=== PATIENT | female | born 1980 | race Caucasian/White ===

== ENCOUNTER 2022-03-22 11:01 | Outpatient (CLI) | payer OTHER, SELFPAY ==
[2022-03-23 00:02] LABS: Vitamin B12* > 1000 pg/mL (243-894)
== END 2022-03-22 11:02 | disposition home or self-care (01) ==
LOC: FRMREF 11:01
PROVIDERS: PCP Physician Assistant Medical; Visit Provider Physician Assistant Medical
DX: I10 Essential (primary) hypertension (principal); D50.9 Iron deficiency anemia, unspecified; E53.8 Deficiency of other specified B group vitamins; F32.A Depression, unspecified
CPT/HCPCS: 82607

== ENCOUNTER 2022-04-12 20:36 | Outpatient (CLI) | payer OTHER, SELFPAY ==
--- NOTE | 2022-04-25 12:36 | W.PM.SLEEP ---
Sleep Study Details Details Interpreting Provider: Dominik Krishnamurthy MD Date of Sleep Study: 04/12/22 Sleep Study Details: STUDY TYPE:? Hospital polysomnogram ? BMI:? 35.5 ORDERING PROVIDER:? Jimmie INDICATION:? Concerns about sleep apnea ? SLEEP SUMMARY:? Sleep time 366.5, efficiency 82.8, latency 16 minutes, REM latency 252 minutes. Arousal index all 22.3 RESPIRATORY SUMMARY:? Mean oxygen awake 95 asleep 94 minimum 88. AHI 9.3 RDI 19 REM AHI 10, supine REM AHI 17.1. There is minimal positional variation between supine and nonsupine sleep PERIODIC LIMB MOVEMENTS OF SLEEP:? None CARDIAC:? Awake 89 asleep 82. No arrhythmias noted IMPRESSION:? [id number] obstructive sleep apnea with an AHI of 9.3 and an RDI of 19. There was minimal positional variation. There was some supine REM dependency. RECOMMENDATION: Treatment options include AutoSet CPAP at a pressure of 4-17, dental appliance weight loss and/or airway expansion surgery. Close follow-up is recommended as there were some central apneas noted.
== END 2022-04-12 20:37 | disposition home or self-care (01) ==
PROVIDERS: PCP Physician Assistant Medical; Visit Provider Physician Assistant Medical
DX: G47.33 Obstructive sleep apnea (adult) (pediatric) (principal)
CPT/HCPCS: 95810

== ENCOUNTER 2022-08-23 07:21 | Outpatient (CLI) | payer OTHER, SELFPAY ==
[2022-08-23 14:46] LABS: Chloride* 104 mmol/L (96-114); Sodium* 142 mmol/L (135-149)
[2022-08-23 14:47] LABS: Albumin* 4.2 g/dL (3.3-5.0)
[2022-08-23 14:48] LABS: Potassium* 3.7 mmol/L (3.6-5.1)
[2022-08-23 14:50] LABS: Alanine Aminotransferase* 21 U/L (4-35); Alkaline Phosphatase* 103 U/L (40-150); Aspartate Amino Transferase* 22 U/L (12-35); Bilirubin Total* 0.5 mg/dL (0.1-1.5); Blood Urea Nitrogen* 11 mg/dL (5-24); Carbon Dioxide* 30 mmol/L (20-32); Cholesterol* 169 mg/dL (90-199); Creatinine* 0.7 mg/dL (0.5-1.5); Estimated Glomerular Filt Rate 111 ml/min; Glucose* 103 mg/dL (60-115); Total Protein* 6.9 g/dL (6.0-8.3); Triglycerides* 129 mg/dL (40-149)
[2022-08-23 14:51] LABS: Calcium* 9.2 mg/dL (8.4-10.6); HDL Cholesterol* 42 mg/dL (>=50); LDL Cholesterol Calculated 101 mg/dL (<100)
[2022-08-23 15:42] LABS: Vitamin B12* 329 pg/mL (243-894)
== END 2022-08-23 07:22 | disposition home or self-care (01) ==
PROVIDERS: PCP Physician Assistant Medical; Visit Provider Physician Assistant Medical
DX: D50.9 Iron deficiency anemia, unspecified (principal); I10 Essential (primary) hypertension; E53.8 Deficiency of other specified B group vitamins; F32.4 Major depressive disorder, single episode, in partial remission; F90.0 Attention-deficit hyperactivity disorder, predominantly inattentive type
CPT/HCPCS: 80053; 80061; 82607; 84443

== ENCOUNTER 2022-10-20 08:34 | Outpatient (CLI) | payer OTHER, SELFPAY ==
--- NOTE | 2022-10-20 08:45 | CRLHL7_ITS ---
For Patients: As a result of the Century Cures Act, medical imaging exams and procedure reports are released immediately into your electronic medical record. You may view this report before your referring provider. If you have questions, please contact your health care provider. BILATERAL SCREENING MAMMOGRAM WITH COMPUTER-AIDED DETECTION AND TOMOSYNTHESIS TECHNIQUE: CC and MLO views were obtained. These mammographic images have been obtained using full-field digital technique. These mammographic images were interpreted with the benefit of computer-aided detection. Breast Tomosynthesis was used in this interpretation. COMPARISON FILM: 08/02/21 FINDINGS: There are scattered areas of fibroglandular density. IMPRESSION: There is no radiographic evidence for malignancy. ASSESSMENT: BI-RADS Category 1: Negative RECOMMENDATION: Routine screening mammogram in 1 year. A lay language report of this examination will be provided to the patient. Wilton Zuleta M.D. Diagnostic Radiologist [email or web address] KELI/chyna Transcribed: 12:28 p.m. PT/Dictated by: Wilton Zuleta MD @ 10/20/2022 9:17:00 AM (Electronically Signed)
== END 2022-10-20 08:35 | disposition home or self-care (01) ==
PROVIDERS: PCP Physician Assistant Medical; Visit Provider Physician Assistant Medical
DX: Z12.31 Encounter for screening mammogram for malignant neoplasm of breast (principal)
CPT/HCPCS: 77063; 77067

== ENCOUNTER 2022-10-23 15:15 | Outpatient (CLI) | payer OTHER, SELFPAY ==
[2022-10-23 19:17] LABS: Chlamydia DNA Amplified* NOT DETECTED (No Detected); GC DNA Amplified* NOT DETECTED (No Detected)
== END 2022-10-23 15:16 | disposition home or self-care (01) ==
LOC: NFLDREF 15:15
PROVIDERS: PCP Physician Assistant Medical; Visit Provider Physician Assistant
DX: Z01.419 Encounter for gynecological examination (general) (routine) without abnormal findings (principal); N89.8 Other specified noninflammatory disorders of vagina; Z11.3 Encounter for screening for infections with a predominantly sexual mode of transmission
CPT/HCPCS: 87491; 87591

== ENCOUNTER 2023-07-18 08:10 | Outpatient (CLI) | payer OTHER, SELFPAY | END 2023-07-18 08:11 | disposition home or self-care (01) | PROVIDERS: PCP Physician Assistant Medical; Visit Provider Physician Assistant Medical | DX: I10 Essential (primary) hypertension (principal); D50.9 Iron deficiency anemia, unspecified; E53.8 Deficiency of other specified B group vitamins; F98.8 Other specified behavioral and emotional disorders with onset usually occurring in childhood and adolescence; K21.9 Gastro-esophageal reflux disease without esophagitis | CPT/HCPCS: 80053; 80061; 84443 ==

== ENCOUNTER 2023-09-14 07:15 | Outpatient (CLI) | payer OTHER, SELFPAY ==
--- NOTE | 2023-09-14 07:15 | MR_ITS ---
?next patient [email or web address]?[email or web address] 3d# ?previous exam [email or web address]?[email or web address] 3d# ?next exam [email or web address]/ViewExam?id=[email or web address]% 3d# ?images?unavailable?print?order exam Additional images may become available within 24 hours of the exam.?Patient Summary Record?help [email or web address]/ViewExam?id=[email or web address]% 3d# ?close [email or web address]?id=[email or web address]% 3d# [address] [address] Phone:?[phone] Fax:?[phone] Referring Physician Information: Peri Mendes M.D. [address] [facility] [address] Phone:?[phone] Fax:?[phone] Patient:?Yaquelin Cabral.O.B:?1980 Sex:?Female Phone:?[phone] [facility] MRN:?[id number] Exam Date:?09/14/2023 EXAM: MRI EXAMINATION OF THE RIGHT HIP CLINICAL INFORMATION: Right hip pain ongoing for 2 months. Small lump. No specific injury. Possible lipoma, seroma, calcium deposit. TECHNICAL INFORMATION: Large [id number]-[id number] coronal T1 and STIR images were obtained. Thin section coronal and sagittal proton density and T2-weighted spin echo sequences were obtained through the right hip followed by oblique axial proton density and axial fat saturation proton density images. There are no prior studies available for comparison. INTERPRETATION: Hip joint: There is no evidence of hip joint effusion or loose body. No subchondral edema signal or cystic change. No discrete lesion identified to indicate AVN. No evidence of marrow edema pattern to indicate fracture or stress reaction of the femoral neck. 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 Thinning of the articular cartilage continues involving the periphery of the anterosuperior joint. There is tearing involving the chondral labral junction of the superior aspect of the labrum. No definite evidence for an anterosuperior labral tear. No paralabral cyst. No appreciable decreased offset involving the femoral head/neck junction. No evidence for acetabular retroversion. The gluteus tendon insertions onto the greater trochanter are intact without tear or significant tendinopathy. No evidence of fluid signal abnormality to indicate trochanteric bursitis. Intact appearance of the iliopsoas muscle and tendon insertions. No evidence for iliopsoas bursitis. No evidence for a soft tissue cyst, mass or fluid collection about the hip. Bones and joints: Marked L5-S1 degenerative disc disease. No occult fracture/stress reaction involves the sacrum. No appreciable changes of SI joint arthrosis. No evidence for a fracture. No abnormal marrow edema pattern to indicate occult stress reaction or stress fracture. Musculotendinous structures: Series 2 images 18 through 20 density mild to moderate changes of edema signal associated with the gluteus origins at the right iliac crest. Mild overlying soft tissue edema signal as well. No other muscle belly edema pattern. Intrapelvic contents: No free fluid seen within the pelvis. There is an ovoid 9 mm low signal intensity mass lesion in keeping with uterine fibroid. No other intrapelvic mass. Neurovascular structures: No discrete cyst, mass or other compression upon the portions visualized of sciatic or femoral nerves. CONCLUSION: 1. There is a small 5 mm segment of chondromalacia and apparent superimposed full-thickness loss involving the periphery of the acetabular roof. Additional thinning of the articular cartilage involving the periphery of the anterosuperior joint. 2. Tear appears present involving the chondral labral junction of the superior labrum. 3. No evidence for bursitis about the hip. 4. No evidence for soft tissue cyst, mass or fluid collection about the hip. 5. There is a mild to moderate appearance of edema signal within the right-sided gluteus origins at the iliac crest in keeping with grade 1 injury. There are mild overlying soft tissue inflammatory changes as well. 6. Marked L5-S1 degenerative disc disease. KES Electronically signed on 09/14/2023 12:10:00 PM by Jerry Esquivel M.D.
== END 2023-09-14 07:16 | disposition home or self-care (01) ==
LOC: MRI 07:16
PROVIDERS: PCP Physician Assistant Medical; Visit Provider Family Medicine
DX: M25.551 Pain in right hip (principal); M94.251 Chondromalacia, right hip; S73.101A Unspecified sprain of right hip, initial encounter; M51.37 Other intervertebral disc degeneration, lumbosacral region; Q65.89 Other specified congenital deformities of hip
CPT/HCPCS: 73721

== ENCOUNTER 2023-12-21 09:32 | Outpatient (CLI) | payer OTHER, SELFPAY ==
[2023-12-21 14:01] LABS: Chlamydia DNA Amplified* NOT DETECTED (No Detected); GC DNA Amplified* NOT DETECTED (No Detected)
== END 2023-12-21 09:33 | disposition home or self-care (01) ==
PROVIDERS: PCP Physician Assistant Medical; Visit Provider Physician Assistant
DX: Z11.3 Encounter for screening for infections with a predominantly sexual mode of transmission (principal)
CPT/HCPCS: 86592; 86703; 86803; 87340; 87491; 87591

== ENCOUNTER 2023-12-24 07:33 | Outpatient (CLI) | payer OTHER, SELFPAY ==
--- NOTE | 2023-12-24 07:45 | MM_ITS ---
Patient: WILNER KEATING Facility:?[facility] Patient ID:?[id number] Site Patient ID:?[id number]. Site :?1980 Study:?XRay-Breast Bilateral 3D W/CAD-12/24/2023 8:03:10 AM Ordering Physician:Delgado December Final Report: BILATERAL SCREENING MAMMOGRAM WITH COMPUTER-AIDED DETECTION AND TOMOSYNTHESIS TECHNIQUE: CC and MLO views were obtained. These mammographic images have been obtained using full-field digital technique. These mammographic images were interpreted with the benefit of computer-aided detection. Breast tomosynthesis was used in this interpretation. COMPARISON FILM: 10/20/22, 08/02/21. FINDINGS: There are scattered areas of fibroglandular density. IMPRESSION: There is no radiographic evidence for malignancy. ASSESSMENT: BI-RADS Category 1: Negative RECOMMENDATION: Routine screening mammogram in 1 year. A lay language report of this examination will be provided to the patient. RUT DALLAS M.D. Diagnostic Radiologist [email or web address] KELI/daniele D& Transcribed: 3:[address]/Dictated by: Rut Dallas MD @ 12/25/2023 12:26:00 PM Signed by:?Rut Dallas MD @12/25/2023 9:34:29 PM (Electronic Signature)
== END 2023-12-24 07:34 | disposition home or self-care (01) ==
LOC: MAMMO 07:34
PROVIDERS: PCP Physician Assistant Medical; Visit Provider Physician Assistant
DX: Z12.31 Encounter for screening mammogram for malignant neoplasm of breast (principal)
CPT/HCPCS: 77063; 77067

== ENCOUNTER 2024-10-28 08:08 | Outpatient (CLI) | payer OTHER, SELFPAY | END 2024-10-28 08:09 | disposition home or self-care (01) | LOC: NFLDREF 10-29 08:38 | PROVIDERS: PCP Physician Assistant Medical; Referring Provider Physician Assistant Medical; Visit Provider Physician Assistant Medical | DX: I10 Essential (primary) hypertension (principal); E53.8 Deficiency of other specified B group vitamins; R73.03 Prediabetes; R53.82 Chronic fatigue, unspecified; F32.4 Major depressive disorder, single episode, in partial remission; K21.9 Gastro-esophageal reflux disease without esophagitis | CPT/HCPCS: 80053; 80061; 82306; 82607; 84443 ==

== ENCOUNTER 2024-12-30 14:26 | Outpatient (CLI) | payer OTHER, SELFPAY | END 2024-12-30 14:27 | disposition home or self-care (01) | LOC: NFLDREF 01-03 02:50 | PROVIDERS: PCP Physician Assistant Medical; Referring Provider Physician Assistant Medical; Visit Provider Physician Assistant Medical | DX: N30.00 Acute cystitis without hematuria (principal) | CPT/HCPCS: 87086 ==

== ENCOUNTER 2025-01-08 14:58 | Outpatient (CLI) | payer OTHER, SELFPAY | END 2025-01-08 14:59 | disposition home or self-care (01) | LOC: NFLDREF 01-18 18:10 | PROVIDERS: PCP Physician Assistant Medical; Referring Provider Physician Assistant Medical; Visit Provider Physician Assistant | DX: R10.2 Pelvic and perineal pain (principal) | CPT/HCPCS: 87086 ==

== ENCOUNTER 2025-01-09 16:05 | Outpatient (CLI) | payer OTHER, SELFPAY ==
--- NOTE | 2025-01-09 16:00 | CRLHL7_ITS ---
For Patients: As a result of the Century Cures Act, medical imaging exams and procedure reports are released immediately into your electronic medical record. You may view this report before your referring provider. If you have questions, please contact your health care provider. INDICATION: Abnormal uterine bleeding COMPARISON: 04/01/2021 TECHNIQUE: 2D lentz scale and color Doppler images were acquired of the pelvis using a transabdominal and transvaginal approach. FINDINGS: Sonographic images demonstrate a normal size and smooth outer contour of the uterus. Uterus measures 7.8 cm in length by 3.7 cm in AP diameter by 5.3 cm in transverse dimension. Posterior right-sided intramural fibroid measures 4 x 4 x 4 millimeters. The endometrium measures 3.6 millimeters. Echogenic foci associated with the endometrium measures 4 x 2 x 2 millimeters and 3 x 3 x 5 millimeters. No endometrial fluid. The right ovary measures 4.0 x 2.5 x 2.6 cm in size and the left ovary measures 3.0 x 1.8 x 1.8 cm. The ovaries demonstrate normal arterial and venous blood flow on color Doppler analysis. There are no suspicious fluid collections within the cul-de-sac. Collapsing right ovarian cyst measured 2.0 x 1.8 x 2.1 cm. IMPRESSION: Endometrial thickness 3.6 millimeters. No endometrial fluid. Incidental calcifications associated with the endometrial stripe measuring 4 millimeters and 5 millimeters. Benign collapsing right ovarian cyst measures 2.1 cm. Incidental intramural fibroid measures 4 millimeters. Dictated by Wilton Zuleta MD @ 01/12/2025 9:37:38 AM (Electronically Signed)
== END 2025-01-09 16:06 | disposition home or self-care (01) ==
LOC: US 16:05
PROVIDERS: PCP Physician Assistant Medical; Visit Provider Physician Assistant
DX: N93.9 Abnormal uterine and vaginal bleeding, unspecified (principal); R93.89 Abnormal findings on diagnostic imaging of other specified body structures; D25.1 Intramural leiomyoma of uterus; R10.2 Pelvic and perineal pain
CPT/HCPCS: 76830; 76856

== ENCOUNTER 2025-04-20 14:22 | Outpatient (CLI) | payer BC, SELFPAY ==
--- NOTE | 2025-04-20 14:40 | CRLHL7_ITS ---
For Patients: As a result of the Century Cures Act, medical imaging exams and procedure reports are released immediately into your electronic medical record. You may view this report before your referring provider. If you have questions, please contact your health care provider. BILATERAL DIGITAL SCREENING MAMMOGRAM WITH COMPUTER-AIDED DETECTION AND TOMOSYNTHESIS CLINICAL HISTORY: Routine screening exam. COMPARISON: Mammograms 12/24/2023 and priors dating back to 08/02/2021. TECHNIQUE: Digital mammogram in CC and MLO projections including computer-aided detection (CAD) and tomosynthesis. BREAST COMPOSITION: There are scattered areas of fibroglandular density. FINDINGS: RIGHT Breast: There is a 0.7 cm mass in the slightly lower outer breast at 8 o`clock, middle depth. LEFT Breast: No suspicious findings. IMPRESSION: RIGHT breast mass. RECOMMENDATIONS: Targeted RIGHT breast ultrasound. The [facility] will contact the patient for follow-up. A lay language report of this examination will be provided to the patient. BI-RADS Category 0: Incomplete: Need Additional Imaging Evaluation Dictated by Anna Franks MD @ 04/21/2025 11:24:35 AM /sp SP/Dictated by: Anna Franks MD @ 04/21/2025 11:24:00 AM (Electronically Signed)
== END 2025-04-20 14:23 | disposition home or self-care (01) ==
LOC: MAMMO 14:22
PROVIDERS: PCP Physician Assistant Medical; Visit Provider Physician Assistant Medical
DX: Z12.31 Encounter for screening mammogram for malignant neoplasm of breast (principal); N63.10 Unspecified lump in the right breast, unspecified quadrant
CPT/HCPCS: 77063; 77067

== ENCOUNTER 2025-04-30 08:09 | Outpatient (CLI) | payer BC, SELFPAY ==
--- NOTE | 2025-04-30 08:15 | CRLHL7_ITS ---
For Patients: As a result of the Cures Act, medical imaging exams and procedure reports are released immediately into your electronic medical record. You may view this report before your referring provider. If you have questions, please contact your health care provider. RIGHT BREAST ULTRASOUND CLINICAL HISTORY: RIGHT breast mass/asymmetry. COMPARISON: Mammogram 04/20/2025. TECHNIQUE: Real-time ultrasound imaging of RIGHT breast with imaging documentation. FINDINGS: Targeted sonogram 8 o`clock 8 cm from the nipple RIGHT breast performed. In this location, there is a simple circumscribed anechoic cyst corresponding with the mammogram findings which measures 7 x 5 x 6 millimeters. An adjacent simple cyst is present at 8 o`clock 7 cm from the nipple which measures 8 x 3 x 7 millimeters. IMPRESSION: Benign simple cysts 8 o`clock RIGHT breast. No suspicious findings. RECOMMENDATIONS: Routine screening mammography. Results and recommendations were discussed with the patient at the time of the exam. A lay language report of this examination will be provided to the patient. BI-RADS Category 2: Benign Dictated by Wilton Zuleta MD @ 04/30/2025 9:24:16 AM jj/Dictated by: Wilton Zuleta MD @ 04/30/2025 9:24:00 AM (Electronically Signed)
== END 2025-04-30 08:10 | disposition home or self-care (01) ==
LOC: US 08:10
PROVIDERS: PCP Physician Assistant Medical; Visit Provider Physician Assistant Medical
DX: N63.10 Unspecified lump in the right breast, unspecified quadrant (principal); R92.8 Other abnormal and inconclusive findings on diagnostic imaging of breast
CPT/HCPCS: 76642